=== PATIENT | male | born 1985 | race Hispanic/Latino ===

== ENCOUNTER 2020-02-18 21:51 | Inpatient (IN) | payer OTHER, SELFPAY ==
[2020-02-18] MEDS ORDERED: ONDANSETRON 4 MG/2 ML INJ IV ONE ×2 (22:18→23:08)
[2020-02-18] MEDS ORDERED: MORPHINE 4 MG/1 ML INJ IV ONE (22:18)
[2020-02-18] MEDS ORDERED: LORazepam 2 MG/ML VIAL IV PRN ×3 (22:18)
[2020-02-18] MEDS ORDERED: PANTOPRAZOLE 40 MG INJ IV ONE (22:20)
[2020-02-18] MEDS ORDERED: LACTATED RINGERS 1,000 ML IV ONE (22:20)
--- NOTE | 2020-02-18 22:22 | Emergency Department Report ---
ED General Adult HPI - General Chief complaint: Abdominal Pain Stated complaint: WEAKNESS/BLOOD IN EMESIS PUI?: Yes Time Seen by Provider: 02/18/20 22:06 Source: patient, EMS ( EMS documentation not available at time of chart dictation ), RN notes reviewed Mode of arrival: Stretcher Limitations: Physical Limitation - History of Present Illness Initial comments: The patient was evaluated in the emergency department for symptoms described in the history of present illness. He/she was evaluated in the context of the global COVID-19 pandemic, which necessitated consideration that the patient might be at risk for infection with the virus that causes COVID-19. Institutional protocols and algorithms that pertain to the evaluation of patients at risk for COVID-19 are in a state of rapid change based on information released by regulatory bodies including the CDC and federal and state organizations. These policies and algorithms were followed during the patient's care in the emergency department. Please note that these policies, procedures and recommendations changed on a rapid basis. During the entire history and physical examination, I had on complete personal protective equipment. During the entire history and physical examination, I am chaperoned/escorted by Mr. Tylor Carroll The patient is a 34-year-old gentleman. He is not known to myself previously. He does not have a primary care doctor. He denies chronic medical conditions. He presents to the ER today with a complaint of black stool, intermittently over the past few days, fever yesterday to 101.9 degrees, chills, shaking, and hematemesis. No headache, neck pain, chest pain. Positive mild diffuse abdominal pain. No urinary symptoms. No testicular pain. No homicidality or suicidality. Does not consume alcohol frequently. No loss of taste or smell that he is aware of. He has never had this happen to him before. -: Gradual, days(s) Location: abdomen Quality: aching Consistency: intermittent Improves with: rest Worsens with: eating - Related Data Allergies Allergy/AdvReac Type Severity Reaction Status Date / Time No Known Allergies Allergy Unverified 02/18/20 21:56 ED Review of Systems ROS: Stated complaint: WEAKNESS/BLOOD IN EMESIS Other details as noted in HPI Constitutional: fever, malaise, weakness Eyes: denies: eye discharge ENT: denies: epistaxis Respiratory: denies: cough Cardiovascular: denies: chest pain Gastrointestinal: abdominal pain, nausea, vomiting, hematemesis, melena. denies: hematochezia Genitourinary: denies: dysuria Musculoskeletal: arthralgia, myalgia Skin: denies: lesions Neurological: weakness Psychiatric: anxiety Hematological/Lymphatic: denies: easy bleeding ED Past Medical Hx - Past Medical History Additional medical history: shingles - Surgical History Past Surgical History?: No - Social History Smoking Status: Never Smoker Substance Use Type: None ED Physical Exam - General Limitations: No Limitations General appearance: alert, anxious, in distress - Head Head exam: Present: atraumatic, normocephalic - Eye Eye exam: Present: normal appearance (Bilateral conjunctiva are pale), EOMI - ENT ENT exam: Present: normal exam, normal orophraynx, mucous membranes dry, normal external ear exam - Neck Neck exam: Present: normal inspection, full ROM. Absent: tenderness, meningismus - Respiratory Respiratory exam: Present: normal lung sounds bilaterally. Absent: respiratory distress, wheezes, rales, rhonchi, stridor - Cardiovascular Cardiovascular Exam: Present: regular rate, normal rhythm, normal heart sounds. Absent: bradycardia, tachycardia, irregular rhythm, systolic murmur, diastolic murmur, rubs, gallop - GI/Abdominal GI/Abdominal exam: Present: soft. Absent: distended, tenderness, guarding, rebound, rigid, pulsatile mass - Rectal Rectal exam: Present: normal inspection, normal rectal tone, heme (+) stool, black stool - Extremities Exam Extremities exam: Present: normal inspection, full ROM, other (2+ pulses noted i n the bilateral upper and lower extremities. There is no palpable cord. negative Homans sign. Muscular compartments are soft. The pelvis is stable.). Absent: pedal edema, calf tenderness - Back Exam Back exam: Present: normal inspection, full ROM. Absent: tenderness, CVA tenderness (R), CVA tenderness (L), paraspinal tenderness, vertebral tenderness - Neurological Exam Neurological exam: Present: alert, other (No facial droop. Tongue midline. Extraocular movements intact bilaterally. Facial sensation intact to light touch in V1, V2, V3 distribution bilaterally. 5 and a 5 strength in 4 extremities. Sensation intact to light touch in 4 extremities.) - Psychiatric Psychiatric exam: Present: anxious - Skin Skin exam: Present: warm, dry, intact, normal color. Absent: rash ED Course Vital Signs 12/01/20 12/01/20 12/01/20 22:24 22:27 22:30 Temperature 98.0 F Pulse Rate 85 95 H 89 Respiratory 18 16 17 Rate Blood Pressure 118/71 Blood Pressure 103/54 [Right] O2 Sat by Pulse 99 98 100 Oximetry 02/18/20 02/18/20 02/18/20 22:45 22:57 23:00 Temperature Pulse Rate 78 76 92 H Respiratory 20 11 L 12 Rate Blood Pressure 105/67 105/67 111/60 Blood Pressure [Right] O2 Sat by Pulse 99 100 99 Oximetry 02/18/20 02/18/20 02/18/20 23:15 23:30 23:45 Temperature Pulse Rate 76 79 78 Respiratory 14 22 20 Rate Blood Pressure 109/63 110/60 110/60 Blood Pressure [Right] O2 Sat by Pulse 99 99 100 Oximetry 02/19/20 02/19/20 02/19/20 00:00 00:27 00:30 Temperature Pulse Rate 81 95 H 84 Respiratory 17 14 13 Rate Blood Pressure 100/55 102/59 102/59 Blood Pressure [Right] O2 Sat by Pulse 99 97 100 Oximetry 02/19/20 02/19/20 02/19/20 00:46 01:00 01:15 Temperature Pulse Rate 90 68 69 Respiratory 17 16 17 Rate Blood Pressure 102/59 101/52 92/53 Blood Pressure [Right] O2 Sat by Pulse 99 99 98 Oximetry 02/19/20 02/19/20 02/19/20 01:30 01:45 02:00 Temperature Pulse Rate 80 69 75 Respiratory 18 14 20 Rate Blood Pressure 91/55 107/65 107/63 Blood Pressure [Right] O2 Sat by Pulse 98 99 100 Oximetry 02/19/20 02/19/20 02/19/20 02:15 02:30 02:45 Temperature Pulse Rate 73 73 72 Respiratory 20 16 16 Rate Blood Pressure 110/66 105/63 107/65 Blood Pressure [Right] O2 Sat by Pulse 100 98 99 Oximetry - Reevaluation(s) Reevaluation #1: 02/18/20 23:11 Differential diagnosis, including the not limited to: Upper GI bleed, pancreatitis, pneumonia, bacteremia, viremia, intra-abdominal infection, COVID- 19 Assessment and plan: 34-year-old gentleman who is pale, clammy, with dry mucous membranes, pale conjunctiva, black stool on rectal exam, and report of vomiting blood x6 today. Place patient on environmental monitoring technician. 2 large-bore IVs will be established, start IV fluids, Protonix, pain medication, nausea medication. Obtain appropriate laboratory studies, EKG, x-ray the chest. Obtain CT scan of the abdomen pelvis, discussed with gastroenterology. Patient amenable to packed red blood cell transfusion. Anticipate admission to the medical service. Patient is amenable to packed red blood cell transfusion, and he is also amenable to hospitalization/admission. Reevaluation #2: 02/19/20 00:[address] scan abdomen pelvis negative for acute disease. Hemoglobin of 9, hematocrit 29, blood urea nitrogen 30, suggestive of upper GI bleed. Given lack of cardiovascular comorbidities, hemoglobin greater than 7, we will hold transfusion at this time. Patient is not hypoxic, has clear x-ray of the chest, no obvious infectious pathology identified today and on objective imaging studies. At this point in time, do not see indication for antibiotics, or for steroids. Hospital physician, Dr. Beatriz Carrero to admit - Consultations Consultation #1: 02/18/20 23:51 Discussed history, physical, pertinent laboratory studies imaging studies with gastroenterology on-call, Dr. George Wagoner. He agrees with plan of care, and will follow in consultation. ED Medical Decision Making - Lab Data Result diagrams: 02/18/20 22:47 02/18/20 22:47 Vital Signs 02/18/20 02/18/20 02/18/20 22:24 22:27 22:30 Temperature 98.0 F Pulse Rate 85 95 H 89 Respiratory 18 16 17 Rate Blood Pressure 118/71 Blood Pressure 103/54 [Right] O2 Sat by Pulse 99 98 100 Oximetry 02/18/20 22:45 Temperature Pulse Rate 78 Respiratory 20 Rate Blood Pressure 105/67 Blood Pressure [Right] O2 Sat by Pulse 99 Oximetry Vital Signs 02/18/20 02/18/20 02/18/20 22:24 22:27 22:30 Temperature 98.0 F Pulse Rate 85 95 H 89 Respiratory 18 16 17 Rate Blood Pressure 118/71 Blood Pressure 103/54 [Right] O2 Sat by Pulse 99 98 100 Oximetry 02/18/20 22:45 Temperature Pulse Rate 78 Respiratory 20 Rate Blood Pressure 105/67 Blood Pressure [Right] O2 Sat by Pulse 99 Oximetry Lab Results 02/18/20 02/18/20 02/18/20 Range/Units 22:47 22:47 22:47 WBC 10.9 (4.5-11.0) K/mm3 RBC 2.99 L (3.65-5.03) M/mm3 Hgb 9.3 L (11.8-15.2) gm/dl Hct 26.5 L (35.5-45.6) % MCV 89 (84-94) fl MCH 31 (28-32) pg MCHC 35 H (32-34) % RDW 12.4 L (13.2-15.2) % Plt Count 180 (140-440) K/mm3 Lymph % (Auto) 7.4 L (13.4-35.0) % Caroline % (Auto) 4.9 (0.0-7.3) % Eos % (Auto) 0.5 (0.0-4.3) % Baso % (Auto) 0.0 (0.0-1.8) % Lymph # (Auto) 0.8 L (1.2-5.4) K/mm3 Caroline # (Auto) 0.5 (0.0-0.8) K/mm3 Eos # (Auto) 0.1 (0.0-0.4) K/mm3 Baso # (Auto) 0.0 (0.0-0.1) K/mm3 Seg Neutrophils % 87.2 H (40.0-70.0) % Seg Neutrophils # 9.5 H (1.8-7.7) K/mm3 PT 14.3 (12.2-14.9) Sec. INR 1.13 (0.87-1.13) Sodium 141 (137-145) mmol/L Potassium 4.4 (3.6-5.0) mmol/L Chloride 109.5 H (98-107) mmol/L Carbon Dioxide 24 (22-30) mmol/L Anion Gap 12 mmol/L BUN 30 H (9-20) mg/dL Creatinine 0.8 (0.8-1.3) mg/dL Estimated GFR > 60 ml/min BUN/Creatinine Ratio 38 % Glucose 106 H (75-100) mg/dL Lactic Acid (0.7-2.0) mmol/L Calcium 8.0 L (8.4-10.2) mg/dL Magnesium (1.7-2.3) mg/dL Total Bilirubin 0.20 (0.1-1.2) mg/dL Direct Bilirubin < 0.2 (0-0.2) mg/dL Indirect Bilirubin 0.0 mg/dL AST 11 (5-40) units/L ALT 11 (7-56) units/L Alkaline Phosphatase 43 (35-129) units/L Total Creatine Kinase (55-170) units/L Total Protein 5.2 L (6.3-8.2) g/dL Albumin 3.4 L (3.9-5) g/dL Albumin/Globulin Ratio 1.9 % Lipase 37 (13-60) units/L Blood Type 02/18/20 02/18/20 02/18/20 Range/Units 22:47 22:47 22:47 WBC (4.5-11.0) K/mm3 RBC (3.65-5.03) M/mm3 Hgb (11.8-15.2) gm/dl Hct (35.5-45.6) % MCV (84-94) fl MCH (28-32) pg MCHC (32-34) % RDW (13.2-15.2) % Plt Count (140-440) K/mm3 Lymph % (Auto) (13.4-35.0) % Caroline % (Auto) (0.0-7.3) % Eos % (Auto) (0.0-4.3) % Baso % (Auto) (0.0-1.8) % Lymph # (Auto) (1.2-5.4) K/mm3 Caroline # (Auto) (0.0-0.8) K/mm3 Eos # (Auto) (0.0-0.4) K/mm3 Baso # (Auto) (0.0-0.1) K/mm3 Seg Neutrophils % (40.0-70.0) % Seg Neutrophils # (1.8-7.7) K/mm3 PT (12.2-14.9) Sec. INR (0.87-1.13) Sodium (137-145) mmol/L Potassium (3.6-5.0) mmol/L Chloride (98-107) mmol/L Carbon Dioxide (22-30) mmol/L Anion Gap mmol/L BUN (9-20) mg/dL Creatinine (0.8-1.3) mg/dL Estimated GFR ml/min BUN/Creatinine Ratio % Glucose (75-100) mg/dL Lactic Acid 1.60 (0.7-2.0) mmol/L Calcium (8.4-10.2) mg/dL Magnesium 1.70 (1.7-2.3) mg/dL Total Bilirubin (0.1-1.2) mg/dL Direct Bilirubin (0-0.2) mg/dL Indirect Bilirubin mg/dL AST (5-40) units/L ALT (7-56) units/L Alkaline Phosphatase (35-129) units/L Total Creatine Kinase 79 (55-170) units/L Total Protein (6.3-8.2) g/dL Albumin (3.9-5) g/dL Albumin/Globulin Ratio % Lipase (13-60) units/L Blood Type O NEGATIVE - EKG Data -: EKG Interpreted by Me EKG shows normal: sinus rhythm Rate: normal - EKG Data When compared to previous EKG there are: previous EKG unavailable 02/18/20 23:43 Sinus rhythm, 84 bpm, normal axis, high left ventricular voltage, QTC 449 ms. Abnormal EKG. No prior for comparison. Not a STEMI. - Radiology Data Radiology results: pending, report reviewed, image reviewed interpreted by me: 1 view x-ray of the chest, interpreted by myself, negative for acute findings Critical care attestation.: If time is entered above; I have spent that time in minutes in the direct care of this critically ill patient, excluding procedure time. ED Disposition Clinical Impression: GI bleed, Anemia, Suspected 2019 novel coronavirus infection Disposition: OP ADMIT IP TO THIS HOSP Is pt being admited?: Yes Does the pt Need Aspirin: No Condition: Serious
[2020-02-18] MEDS ORDERED: WATER FOR INJ Sterile (PF) 10 ML ONE (22:41)
[2020-02-18] MEDS ORDERED: PANTOPRAZOLE 80 MG in SODIUM CHLORIDE 0.9% 100 ML IV SCH (23:00)
--- NOTE | 2020-02-18 23:12 | XRay Report ---
CHEST 1 VIEW INDICATION: n/v hematemesis. COMPARISON: None FINDINGS: SUPPORT DEVICES: None. HEART: Within normal limits. LUNGS/PLEURA: No acute air space or interstitial disease. ADDITIONAL FINDINGS: None. IMPRESSION: 1. No acute findings. Signer Name: Abram Baig MD Signed: 02/18/2020 11:08 PM Workstation Name: [id number]
[2020-02-18 23:13] LABS: Eosinophils # (Auto) 0.1 K/mm3 (0.0-0.4); Eosinophils % (Auto) 0.5 % (0.0-4.3); Hematocrit 26.5 % (35.5-45.6); Hemoglobin 9.3 gm/dl (11.8-15.2); Lymphocytes # (Auto) 0.8 K/mm3 (1.2-5.4); Lymphocytes % (Auto) 7.4 % (13.4-35.0); Mean Corpuscular HGB Conc 35 % (32-34); Mean Corpuscular Volume 89 fl (84-94); Monocytes # (Auto) 0.5 K/mm3 (0.0-0.8); Monocytes % (Auto) 4.9 % (0.0-7.3); Platelet Count 180 K/mm3 (140-440); Red Blood Count 2.99 M/mm3 (3.65-5.03); Red Cell Distribution Width 12.4 % (13.2-15.2)
[2020-02-18 23:43] LABS: INR 1.13 (0.87-1.13)
[2020-02-18 23:52] LABS: Alanine Aminotransferase 11 units/L (7-56); Albumin 3.4 g/dL (3.9-5); BUN/Creatinine Ratio 38; Blood Urea Nitrogen 30 mg/dL (9-20); Hemolysis Index 5
[2020-02-18 23:54] LABS: Bilirubin,Direct < 0.2 mg/dL (0-0.2)
--- NOTE | 2020-02-19 00:48 | Cat Scan Report ---
CT ABDOMEN AND PELVIS WITH CONTRAST HISTORY: Pt complains of abd pain with N/V, hematemesis and fever. COMPARISON: None. TECHNIQUE: CT images of the abdomen and pelvis were obtained following administration of intravenous contrast. All CT scans at this location are performed using CT dose reduction for ALARA by means of automated exposure control. CONTRAST: 100 ml of intravenous contrast administered. FINDINGS: Lungs/bones: Lung bases are clear. No acute osseous abnormality identified. Small bone island in the right sacral ala. Abdomen/pelvis: The liver, gallbladder, spleen, pancreas, adrenals, kidneys, and proximal GI tract a ppear unremarkable. Urinary bladder and prostate appear unremarkable with no pelvic free fluid. No acute colonic abnormal ity. The appendix and terminal ileum appear normal. IMPRESSION: 1. No acute abnormality identified. Signer Name: Abram Baig MD Signed: 02/19/2020 12:44 AM Workstation Name: [id number]
[2020-02-19] MEDS ORDERED: ACETAMINOPHEN 325 MG TAB PO PRN (01:33)
[2020-02-19] MEDS ORDERED: MORPHINE 2 MG/1 ML INJ IV PRN (01:33)
[2020-02-19] MEDS ORDERED: ONDANSETRON 4 MG/2 ML INJ IV PRN (01:33)
[2020-02-19] MEDS ORDERED: LACTATED RINGERS 1,000 ML IV ONE (01:42)
--- NOTE | 2020-02-19 01:42 | History and Physical Report ---
History of Present Illness Date of examination: 02/19/20 Date of admission: 02/19/20 00:51 Chief complaint: Hematemesis History of present illness: 34-year-old white male with no significant past medical history except for shingles in the past presenting to the emergency room today complaining of hematemesis. Has had some associated abdominal discomfort. Patient also indicates that he has had occasional black stool over the past few days. He has had some fever with temperature 101.9 F and chills . Patient indicates that he has taken some nonsteroidal anti-inflammatory medication -Aleve in the past few days. He denies having any bleeding in the past. Denies any headache or dizziness, no chest pain or shortness of breath. Work-up in the emergency room including urinalysis, chest x-ray and CT scan of the abdomen and pelvis were unremarkable. Patient started on Protonix drip. Desk Attendant Dr. Wagoner has been consulted by the ER physician. He is also to be ruled out for COVID-19. Past History Past Medical History: other (Shingles) Past Surgical History: No surgical history Social history: denies: no significant social history Medications and Allergies Allergies Allergy/AdvReac Type Severity Reaction Status Date / Time No Known Allergies Allergy Unverified 02/18/20 21:56 Active Meds: Active Medications Acetaminophen (Tylenol) 650 mg PO Q4H PRN PRN Reason: Pain MILD(1-3)/Fever >100.5/SNIDER Pantoprazole Sodium 80 mg/ (Sodium Chloride) 100 mls @ 10 mls/hr IV DIRECT TINO Last Admin: 02/18/20 23:22 Dose: 8 mg/hr, 10 mls/hr Documented by: Sodium Chloride (Nacl 0.9% 1000 Ml) 1,000 mls @ 125 mls/hr IV DIRECT TINO Lorazepam (Ativan) 2 mg IV Q1HR PRN PRN Reason: CIWA-Ar 8-15 Lorazepam (Ativan) 4 mg IV Q1HR PRN PRN Reason: CIWA-Ar 16-25 Lorazepam (Ativan) 4 mg IV Q15MIN PRN PRN Reason: CIWA-Ar >25 Morphine Sulfate (Morphine) 2 mg IV Q4H PRN PRN Reason: Pain, Moderate (4-6) Ondansetron HCl (Zofran) 4 mg IV Q8H PRN PRN Reason: Nausea And Vomiting Sodium Chloride (Sodium Chloride Flush Syringe 10 Ml) 10 ml IV BID TINO Sodium Chloride (Sodium Chloride Flush Syringe 10 Ml) 10 ml IV PRN PRN PRN Reason: LINE FLUSH Review of Systems Constitutional: no fever, no chills Ears, nose, mouth and throat: no nasal congestion, no sore throat Cardiovascular: no chest pain, no palpitations Respiratory: no cough, no shortness of breath Gastrointestinal: hematemesis, melena, no abdominal pain, no nausea, no vomiting Genitourinary Male: no dysuria, no hematuria, no nocturia Musculoskeletal: no neck pain, no low back pain Integumentary: no rash, no pruritis Neurological: no headaches, no confusion Psychiatric: no anxiety, no depression Exam - Constitutional Vitals: Temp Pulse Resp BP Pulse Ox 98.0 F 68 16 101/52 99 02/18/20 22:24 02/19/20 01:00 02/19/20 01:00 02/19/20 01:00 02/19/20 01:00 General appearance: Present: no acute distress, well-nourished - EENT Eyes: Present: PERRL, EOM intact. Absent: scleral icterus ENT: hearing intact, clear oral mucosa, dentition normal - Neck Neck: Present: supple, normal ROM - Respiratory Respiratory effort: normal Respiratory: bilateral: CTA - Cardiovascular Rhythm: regular Heart Sounds: Present: S1 & S2. Absent: gallop, systolic murmur, diastolic murmur, rub - Extremities Extremities: no ischemia, pulses intact, pulses symmetrical, No edema, Full ROM Peripheral Pulses: within normal limits - Abdominal General gastrointestinal: Present: soft, non-tender, non-distended, normal bowel sounds. Absent: mass - Integumentary Integumentary: Present: clear, warm, dry. Absent: rash - Musculoskeletal Musculoskeletal: strength equal bilaterally - Psychiatric Psychiatric: appropriate mood/affect, intact judgment & insight, memory intact, cooperative - Neurologic Neurologic: CNII-XII intact, moves all extremities Results - Labs CBC & Chem 7: 02/18/20 22:47 02/18/20 22:47 Labs: Abnormal lab results 02/18/20 02/18/20 Range/Units 22:47 22:47 RBC 2.99 L (3.65-5.03) M/mm3 Hgb 9.3 L (11.8-15.2) gm/dl Hct 26.5 L (35.5-45.6) % MCHC 35 H (32-34) % RDW 12.4 L (13.2-15.2) % Lymph % (Auto) 7.4 L (13.4-35.0) % Lymph # (Auto) 0.8 L (1.2-5.4) K/mm3 Seg Neutrophils % 87.2 H (40.0-70.0) % Seg Neutrophils # 9.5 H (1.8-7.7) K/mm3 Chloride 109.5 H (98-107) mmol/L BUN 30 H (9-20) mg/dL Glucose 106 H (75-100) mg/dL Calcium 8.0 L (8.4-10.2) mg/dL Total Protein 5.2 L (6.3-8.2) g/dL Albumin 3.4 L (3.9-5) g/dL Assessment and Plan - Patient Problems (1) GI bleed Current Visit: Yes Status: Acute Plan to address problem: Possibly secondary to intake of nonsteroidal anti-inflammatory medication. Patient made n.p.o. He has also been started on proton pump inhibitor. We await further evaluation by gastroenterology. (2) Anemia Current Visit: Yes Status: Acute Plan to address problem: Possibly secondary to GI bleed. Will monitor CBC. (3) Suspected 2019 novel coronavirus infection Current Visit: Yes Status: Acute Plan to address problem: Patient placed on isolation precautions in view of the history of recent fever. We await COVID-19 testing. (4) DVT prophylaxis Current Visit: Yes Status: Acute Plan to address problem: Patient placed on sequential compression device. (5) Full code status Current Visit: Yes Status: Acute
[2020-02-19] MEDS ORDERED: SODIUM CHLORIDE 0.9% 1000 ML 1,000 ML ONE ×2 (02:29→09:56)
[2020-02-19] MEDS: SODIUM CHLORIDE 0.9% 1000 ML 1,000 ML IV SCH ×3 (02:36→20:40)
[2020-02-19 02:49] LABS: Bilirubin,Urine NEG (Negative); Blood,Urine NEG (Negative); Color,Urine Yellow (Yellow); Mucus,Urine FEW /HPF; Protein,Urine <15 mg/dL mg/dL (Negative); Urobilinogen,Urine < 2.0 mg/dL (<2.0)
[2020-02-19] MEDS ORDERED: SODIUM CHLORIDE 0.9% 250ML 250 ML ONE (06:50)
[2020-02-19] MEDS ORDERED: SODIUM CHLORIDE 0.9% 250ML 250 ML IV ONE (06:59)
[2020-02-19 11:22] LABS: Hemoglobin 8.6 gm/dl (11.8-15.2)
[2020-02-19 13:39] LABS: Hematocrit 24.8 % (35.5-45.6)
--- NOTE | 2020-02-19 13:54 | Gastroenterology Consultation ---
History of Present Illness - Reason for Consult Consult date: 02/19/20 GI bleed Requesting physician: JOLLY THURSTON - History of Present Illness The patient is a 34 yo male who presents with n/v/abd pain; pt reports sx's for the past 1 week, episodes of dark blood appearing emesis prior to admission. Reports having black stools for 3-4 days. + left sided abd pain, fever at home prior to admission with associated chills. Noted to have anemia on admission, stable today on f/u labs. no n/v/signs of gi bleeding since arrival. pt being rule out for COVID. + nsaid use (coupled days) recently. Past History Past Medical History: other (Shingles) Past Surgical History: No surgical history Social history: denies: no significant social history Medications and Allergies Allergies Allergy/AdvReac Type Severity Reaction Status Date / Time No Known Allergies Allergy Unverified 02/18/20 21:56 Active Meds: Active Medications Acetaminophen (Tylenol) 650 mg PO Q4H PRN PRN Reason: Pain MILD(1-3)/Fever >100.5/SNIDER Pantoprazole Sodium 80 mg/ (Sodium Chloride) 100 mls @ 10 mls/hr IV DIRECT TINO Last Admin: 02/18/20 23:22 Dose: 8 mg/hr, 10 mls/hr Documented by: Sodium Chloride (Nacl 0.9% 1000 Ml) 1,000 mls @ 125 mls/hr IV DIRECT TINO Last Admin: 02/19/20 10:01 Dose: 125 mls/hr Documented by: Lorazepam (Ativan) 2 mg IV Q1HR PRN PRN Reason: CIWA-Ar 8-15 Lorazepam (Ativan) 4 mg IV Q1HR PRN PRN Reason: CIWA-Ar 16-25 Lorazepam (Ativan) 4 mg IV Q15MIN PRN PRN Reason: CIWA-Ar >25 Morphine Sulfate (Morphine) 2 mg IV Q4H PRN PRN Reason: Pain, Moderate (4-6) Ondansetron HCl (Zofran) 4 mg IV Q8H PRN PRN Reason: Nausea And Vomiting Sodium Chloride (Sodium Chloride Flush Syringe 10 Ml) 10 ml IV BID TINO Sodium Chloride (Sodium Chloride Flush Syringe 10 Ml) 10 ml IV PRN PRN PRN Reason: LINE FLUSH Reviewed/updated patient's home and current medications Review of Systems - Review of Systems All systems: negative (per HPI) Exam - Constitutional Vital Signs: Temp Pulse Resp BP Pulse Ox 98.0 F 63 18 99/56 100 02/18/20 22:24 02/19/20 11:30 02/19/20 11:30 02/19/20 13:00 02/19/20 11:30 General appearance: no acute distress - EENT Eyes: PERRL, EOM intact - Respiratory Respiratory effort: normal Respiratory: bilateral: CTA - Cardiovascular Rhythm: regular Heart Sounds: Present: S1 & S2 - Gastrointestinal General gastrointestinal: Present: soft, tender (mild luq ttp), non-distended - Neurologic Neurological: alert and oriented x3 - Labs CBC & Chem 7: 02/19/20 13:23 02/18/20 22:47 Lab Results: Laboratory Results - last 24 hr 02/18/20 02/18/20 02/18/20 22:47 22:47 22:47 WBC 10.9 RBC 2.99 L Hgb 9.3 L Hct 26.5 L MCV 89 MCH 31 MCHC 35 H RDW 12.4 L Plt Count 180 Lymph % (Auto) 7.4 L [place] % (Auto) 4.9 Eos % (Auto) 0.5 Baso % (Auto) 0.0 Lymph # (Auto) 0.8 L [place] # (Auto) 0.5 Eos # (Auto) 0.1 Baso # (Auto) 0.0 Seg Neutrophils % 87.2 H Seg Neutrophils # 9.5 H PT 14.3 INR 1.13 Sodium 141 Potassium 4.4 Chloride 109.5 H Carbon Dioxide 24 Anion Gap 12 BUN 30 H Creatinine 0.8 Estimated GFR > 60 BUN/Creatinine Ratio 38 Glucose 106 H Lactic Acid Calcium 8.0 L Magnesium Total Bilirubin 0.20 Direct Bilirubin < 0.2 Indirect Bilirubin 0.0 AST 11 ALT 11 Alkaline Phosphatase 43 Lactate Dehydrogenase 124 Total Creatine Kinase C-Reactive Protein 0.20 Total Protein 5.2 L Albumin 3.4 L Albumin/Globulin Ratio 1.9 Lipase 37 Procalcitonin Urine Color Urine Turbidity Urine pH Ur Specific [place] Urine Protein Urine Glucose (UA) Urine Ketones Urine Blood Urine Nitrite Urine Bilirubin Urine Urobilinogen Ur Leukocyte Esterase Urine WBC (Auto) Urine RBC (Auto) Urine Mucus Blood Type Antibody Screen 1202/18/20 02/18/20 22:47 22:47 22:47 WBC RBC Hgb Hct MCV MCH MCHC RDW Plt Count Lymph % (Auto) [place] % (Auto) Eos % (Auto) Baso % (Auto) Lymph # (Auto) [place] # (Auto) Eos # (Auto) Baso # (Auto) Seg Neutrophils % Seg Neutrophils # PT INR Sodium Potassium Chloride Carbon Dioxide Anion Gap BUN Creatinine Estimated GFR BUN/Creatinine Ratio Glucose Lactic Acid 1.60 Calcium Magnesium Total Bilirubin Direct Bilirubin Indirect Bilirubin AST ALT Alkaline Phosphatase Lactate Dehydrogenase Total Creatine Kinase C-Reactive Protein Total Protein Albumin Albumin/Globulin Ratio Lipase Procalcitonin < 0.05 Urine Color Urine Turbidity Urine pH Ur Specific [place] Urine Protein Urine Glucose (UA) Urine Ketones Urine Blood Urine Nitrite Urine Bilirubin Urine Urobilinogen Ur Leukocyte Esterase Urine WBC (Auto) Urine RBC (Auto) Urine Mucus Blood Type O NEGATIVE Antibody Screen Negative 02/18/20 02/19/20 02/19/20 22:47 02:13 11:08 WBC RBC Hgb 8.6 L Hct 24.0 L MCV MCH MCHC RDW Plt Count Lymph % (Auto) [place] % (Auto) Eos % (Auto) Baso % (Auto) Lymph # (Auto) [place] # (Auto) Eos # (Auto) Baso # (Auto) Seg Neutrophils % Seg Neutrophils # PT INR Sodium Potassium Chloride Carbon Dioxide Anion Gap BUN Creatinine Estimated GFR BUN/Creatinine Ratio Glucose Lactic Acid Calcium Magnesium 1.70 Total Bilirubin Direct Bilirubin Indirect Bilirubin AST ALT Alkaline Phosphatase Lactate Dehydrogenase Total Creatine Kinase 79 C-Reactive Protein Total Protein Albumin Albumin/Globulin Ratio Lipase Procalcitonin Urine Color Yellow Urine Turbidity Clear Urine pH 5.0 Ur Specific [place] 1.049 H Urine Protein <15 mg/dl Urine Glucose (UA) Neg Urine Ketones Tr Urine Blood Neg Urine Nitrite Neg Urine Bilirubin Neg Urine Urobilinogen < 2.0 Ur Leukocyte Esterase Neg Urine WBC (Auto) 1.0 Urine RBC (Auto) 1.0 Urine Mucus Few Blood Type Antibody Screen 02/19/20 13:23 WBC RBC Hgb 9.0 L Hct 24.8 L MCV MCH MCHC RDW Plt Count Lymph % (Auto) [place] % (Auto) Eos % (Auto) Baso % (Auto) Lymph # (Auto) [place] # (Auto) Eos # (Auto) Baso # (Auto) Seg Neutrophils % Seg Neutrophils # PT INR Sodium Potassium Chloride Carbon Dioxide Anion Gap BUN Creatinine Estimated GFR BUN/Creatinine Ratio Glucose Lactic Acid Calcium Magnesium Total Bilirubin Direct Bilirubin Indirect Bilirubin AST ALT Alkaline Phosphatase Lactate Dehydrogenase Total Creatine Kinase C-Reactive Protein Total Protein Albumin Albumin/Globulin Ratio Lipase Procalcitonin Urine Color Urine Turbidity Urine pH Ur Specific [place] Urine Protein Urine Glucose (UA) Urine Ketones Urine Blood Urine Nitrite Urine Bilirubin Urine Urobilinogen Ur Leukocyte Esterase Urine WBC (Auto) Urine RBC (Auto) Urine Mucus Blood Type Antibody Screen Assessment and Plan 1. UGI bleed - anemic on admission, stable today. no further bleeding since admission. ? PUD, MWT, etc. Cont PPI drip, monitor labs, and will plan for EGD tomorrow (pending COVID results). 2. Abd pain - unclear etiology, ct without acute findings. liver enzymes and lipase normal. ? PUD, biliary source. EGD as above and further management based on progress okay for clears today from gi stand point and NPO at midnight
--- NOTE | 2020-02-19 15:48 | Consultation ---
History of Present Illness - Reason for Consult Consult date: 02/19/20 - History of Present Illness 34-year-old man no past medical history aside from obesity admitted to the hospital complaining of hematemesis. He notes some abdominal pain associated with this as well as occasional black stool. He reports some fevers at home. He otherwise denies symptoms. Afebrile with normal white count. Not on antibiotics. Cultures pending. Imaging personally reviewed: Chest x-ray: No acute abnormality CT abdomen pelvis no acute normality. Review of Systems: Bold if positive, otherwise negative General: fevers, chills, rigors HEENT: visual disturbance, diplopia, eye pain Respiratory: cough, sputum, hemoptysis, shortness of breath Cardiovascular: chest pain, syncope Gastrointestinal: nausea, vomiting, diarrhea, abdominal pain Genitourinary: dysuria, hematuria, flank pain Musculoskeletal: neck pain, back pain, joint pain, edema Neurologic: headaches, seizures Hematologic: easy bruising or bleeding Endocrine: night sweats, acute weight loss Skin: rash, jaundice, redness Psychiatric: suicidal, homicidal ideation Past History Past Medical History: other (Shingles) Past Surgical History: No surgical history Social history: denies: no significant social history Medications and Allergies Allergies Allergy/AdvReac Type Severity Reaction Status Date / Time No Known Allergies Allergy Unverified 02/18/20 21:56 Active Meds: Active Medications Acetaminophen (Tylenol) 650 mg PO Q4H PRN PRN Reason: Pain MILD(1-3)/Fever >100.5/SNIDER Pantoprazole Sodium 80 mg/ (Sodium Chloride) 100 mls @ 10 mls/hr IV DIRECT TINO Last Admin: 02/18/20 23:22 Dose: 8 mg/hr, 10 mls/hr Documented by: Sodium Chloride (Nacl 0.9% 1000 Ml) 1,000 mls @ 125 mls/hr IV DIRECT TINO Last Admin: 02/19/20 10:01 Dose: 125 mls/hr Documented by: Lorazepam (Ativan) 2 mg IV Q1HR PRN PRN Reason: CIWA-Ar 8-15 Lorazepam (Ativan) 4 mg IV Q1HR PRN PRN Reason: CIWA-Ar 16-25 Lorazepam (Ativan) 4 mg IV Q15MIN PRN PRN Reason: CIWA-Ar >25 Morphine Sulfate (Morphine) 2 mg IV Q4H PRN PRN Reason: Pain, Moderate (4-6) Ondansetron HCl (Zofran) 4 mg IV Q8H PRN PRN Reason: Nausea And Vomiting Sodium Chloride (Sodium Chloride Flush Syringe 10 Ml) 10 ml IV BID TINO Sodium Chloride (Sodium Chloride Flush Syringe 10 Ml) 10 ml IV PRN PRN PRN Reason: LINE FLUSH Physical Examination - Physical Exam Narrative exam: Physical exam deferred due to PPE conservation strategy. Please refer to primary team's note. - Constitutional Vitals: Vital Signs Temp Pulse Resp BP Pulse Ox 98.0 F 63 18 99/56 100 02/18/20 22:24 02/19/20 11:30 02/19/20 11:30 02/19/20 13:00 02/19/20 11:30 Temperature -Last 24 Hours Temperature 98.0 F Results - Labs CBC & Chem 7: 02/19/20 13:23 02/18/20 22:47 Labs: Abnormal lab results 02/18/20 02/18/20 02/19/20 Range/Units 22:47 22:47 02:13 RBC 2.99 L (3.65-5.03) M/mm3 Hgb 9.3 L (11.8-15.2) gm/dl Hct 26.5 L (35.5-45.6) % MCHC 35 H (32-34) % RDW 12.4 L (13.2-15.2) % Lymph % (Auto) 7.4 L (13.4-35.0) % Lymph # (Auto) 0.8 L (1.2-5.4) K/mm3 Seg Neutrophils % 87.2 H (40.0-70.0) % Seg Neutrophils # 9.5 H (1.8-7.7) K/mm3 Chloride 109.5 H (98-107) mmol/L BUN 30 H (9-20) mg/dL Glucose 106 H (75-100) mg/dL Calcium 8.0 L (8.4-10.2) mg/dL Total Protein 5.2 L (6.3-8.2) g/dL Albumin 3.4 L (3.9-5) g/dL Ur Specific [place] 1.049 H (1.003-1.030) Coronavirus (PCR) (Negative) 02/19/20 02/19/20 02/19/20 Range/Units 08:25 11:08 13:23 RBC (3.65-5.03) M/mm3 Hgb 8.6 L 9.0 L (11.8-15.2) gm/dl Hct 24.0 L 24.8 L (35.5-45.6) % MCHC (32-34) % RDW (13.2-15.2) % Lymph % (Auto) (13.4-35.0) % Lymph # (Auto) (1.2-5.4) K/mm3 Seg Neutrophils % (40.0-70.0) % Seg Neutrophils # (1.8-7.7) K/mm3 Chloride (98-107) mmol/L BUN (9-20) mg/dL Glucose (75-100) mg/dL Calcium (8.4-10.2) mg/dL Total Protein (6.3-8.2) g/dL Albumin (3.9-5) g/dL Ur Specific [place] (1.003-1.030) Coronavirus (PCR) Positive A (Negative) Assessment and Plan Cultures: None A/P: 34-year-old man past medical history obesity presented with an upper GI bleed #Covid PUI: Follow-up testing. No pneumonia seen on exam #Upper GI bleed: Management per GI, possible EGD pending Covid test results #Obesity: BMI 34 Recs: -Follow-up Covid testing -Discontinue isolation if negative Thank you for the consult, we will continue to follow. MD [facility] ([facility]) O: [phone] F: [phone]
--- NOTE | 2020-02-19 18:38 | Event Note ---
Date: 02/19/20 Patient seen and examined 34-year-old white male presented to the emergency room today complaining of hematemesis, associated abdominal discomfort, fever with temperature 101.9 F and chills. Work-up in the emergency room including urinalysis, chest x-ray and CT scan of the abdomen and pelvis were unremarkable. Patient started on Protonix drip. [employer] Dr. Wagoner has been consulted by the ER physician. Ordered for COVID test - which is now pending clear liquid diet for now, follow h/h plan for endoscopy tomorrow
[2020-02-20 00:22] LABS: Hematocrit 21.8 % (35.5-45.6); Hemoglobin 7.9 gm/dl (11.8-15.2)
[2020-02-20 06:49] LABS: Mean Corpuscular Volume 87 fl (84-94); Platelet Count 164 K/mm3 (140-440); Red Blood Count 2.38 M/mm3 (3.65-5.03); Red Cell Distribution Width 12.8 % (13.2-15.2)
[2020-02-20 06:52] LABS: Hematocrit 20.7 % (35.5-45.6)
[2020-02-20 06:55] LABS: Mean Corpuscular HGB Conc 39 % (32-34)
[2020-02-20 07:14] LABS: Blood Urea Nitrogen 17 mg/dL (9-20); Calcium 7.8 mg/dL (8.4-10.2); Hemolysis Index 4
[2020-02-20 07:15] LABS: INR 1.07 (0.87-1.13)
[2020-02-20 08:02] LABS: BUN/Creatinine Ratio 24
[2020-02-20 08:38] LABS: Basophils % (Manual) 0 % (0.0-1.8); Total Cells Counted 100
[2020-02-20 08:39] LABS: Platelet Estimate Consistent w Auto; RBC Morphology Normal
[2020-02-20 09:07] LABS: Alanine Aminotransferase 8 units/L (7-56); Blood Urea Nitrogen 16 mg/dL (9-20); Calcium 7.9 mg/dL (8.4-10.2); Hemolysis Index 0
[2020-02-20 09:10] LABS: BUN/Creatinine Ratio 23
[2020-02-20] MEDS: SODIUM CHLORIDE 0.9% 1000 ML 1,000 ML IV SCH ×2 (09:19→22:00)
--- NOTE | 2020-02-20 10:43 | Gastroenterology Progress Note ---
Assessment and Plan 1. UGI bleed - no episodes since admission; stable anemia. BUN now normal. given absence of gi bleeding since arrival and + COVID, will hold off on endoscopy unless further signs of bleeding develops -cont PPI BID Dosing and trend labs -okay for clears today from gi stand point. -COVID management per primary will follow Subjective Date of service: 02/20/20 Principal diagnosis: GI bleed Interval history: no signs of gi bleeding since admission. + hemoptysis last night. no bm since admission. denies hematemesis. Objective - Constitutional Vitals: Temp Pulse Resp BP Pulse Ox 98.0 F 81 20 99/59 99 02/20/20 05:10 02/20/20 05:10 02/20/20 08:00 02/20/20 05:10 02/20/20 08:00 General appearance: no acute distress - Respiratory Respiratory effort: normal Respiratory: bilateral: CTA - Cardiovascular Rhythm: regular Heart Sounds: Present: S1 & S2 - Gastrointestinal General gastrointestinal: Present: soft, non-distended - Labs CBC & Chem 7: 02/20/20 05:53 02/20/20 07:44 Labs: Laboratory Results - last 24 hr 02/18/20 02/19/20 02/19/20 22:47 08:25 11:08 WBC RBC Hgb 8.6 L Hct 24.0 L MCV MCH MCHC RDW Plt Count Add Manual Diff Total Counted Seg Neuts % (Manual) Band Neutrophils % Lymphocytes % (Manual) Reactive Lymphs % (Man) Monocytes % (Manual) Eosinophils % (Manual) Basophils % (Manual) Metamyelocytes % Myelocytes % Promyelocytes % Blast Cells % Nucleated RBC % Seg Neutrophils # Man Band Neutrophils # Lymphocytes # (Manual) Abs React Lymphs (Man) Monocytes # (Manual) Eosinophils # (Manual) Basophils # (Manual) Metamyelocytes # Myelocytes # Promyelocytes # Blast Cells # WBC Morphology Hypersegmented Neuts Hyposegmented Neuts Hypogranular Neuts Smudge Cells Toxic Granulation Toxic Vacuolation Dohle Bodies Pelger-Huet Anomaly Wallace Rods Platelet Estimate Clumped Platelets Plt Clumps, EDTA Large Platelets Giant Platelets Platelet Satelliting Plt Morphology Comment RBC Morphology Dimorphic RBCs Polychromasia Hypochromasia Poikilocytosis Anisocytosis Microcytosis Macrocytosis Spherocytes Pappenheimer Bodies Sickle Cells Target Cells Tear Drop Cells Ovalocytes Helmet Cells Roman-Nathrop Bodies Herrin Rings [place] Cells Bite Cells Crenated Cell Elliptocytes Acanthocytes (Spur) Rouleaux Hemoglobin C Crystals Schistocytes Malaria parasites Dandre Bodies Hem Pathologist Commnt PT INR Sodium Potassium Chloride Carbon Dioxide Anion Gap BUN Creatinine Estimated GFR BUN/Creatinine Ratio Glucose POC Glucose Calcium Total Bilirubin AST ALT Alkaline Phosphatase Total Protein Albumin Albumin/Globulin Ratio Procalcitonin < 0.05 Coronavirus (PCR) Positive A 02/19/20 02/19/20 02/19/20 13:23 22:39 22:51 WBC RBC Hgb 9.0 L 7.9 L Hct 24.8 L 21.8 L MCV MCH MCHC RDW Plt Count Add Manual Diff Total Counted Seg Neuts % (Manual) Band Neutrophils % Lymphocytes % (Manual) Reactive Lymphs % (Man) Monocytes % (Manual) Eosinophils % (Manual) Basophils % (Manual) Metamyelocytes % Myelocytes % Promyelocytes % Blast Cells % Nucleated RBC % Seg Neutrophils # Man Band Neutrophils # Lymphocytes # (Manual) Abs React Lymphs (Man) Monocytes # (Manual) Eosinophils # (Manual) Basophils # (Manual) Metamyelocytes # Myelocytes # Promyelocytes # Blast Cells # WBC Morphology Hypersegmented Neuts Hyposegmented Neuts Hypogranular Neuts Smudge Cells Toxic Granulation Toxic Vacuolation Dohle Bodies Pelger-Huet Anomaly Wallace Rods Platelet Estimate Clumped Platelets Plt Clumps, EDTA Large Platelets Giant Platelets Platelet Satelliting Plt Morphology Comment RBC Morphology Dimorphic RBCs Polychromasia Hypochromasia Poikilocytosis Anisocytosis Microcytosis Macrocytosis Spherocytes Pappenheimer Bodies Sickle Cells Target Cells Tear Drop Cells Ovalocytes Helmet Cells Roman-Nathrop Bodies Herrin Rings [place] Cells Bite Cells Crenated Cell Elliptocytes Acanthocytes (Spur) Rouleaux Hemoglobin C Crystals Schistocytes Malaria parasites Dandre Bodies Hem Pathologist Commnt PT INR Sodium Potassium Chloride Carbon Dioxide Anion Gap BUN Creatinine Estimated GFR BUN/Creatinine Ratio Glucose POC Glucose 118 H Calcium Total Bilirubin AST ALT Alkaline Phosphatase Total Protein Albumin Albumin/Globulin Ratio Procalcitonin Coronavirus (PCR) 02/20/20 02/20/20 02/20/20 05:53 05:53 05:53 WBC 3.7 L RBC 2.38 L Hgb 8.0 L Hct 20.7 L MCV 87 MCH 34 H MCHC 39 H* RDW 12.8 L Plt Count 164 Add Manual Diff Complete Total Counted 100 Seg Neuts % (Manual) 66.0 Band Neutrophils % 1.0 Lymphocytes % (Manual) 24.0 Reactive Lymphs % (Man) 0 Monocytes % (Manual) 4.0 Eosinophils % (Manual) 2.0 Basophils % (Manual) 0 Metamyelocytes % 2.0 Myelocytes % 1.0 Promyelocytes % 0 Blast Cells % 0 Nucleated RBC % Not Reportable Seg Neutrophils # Man 2.4 Band Neutrophils # 0.0 Lymphocytes # (Manual) 0.9 L Abs React Lymphs (Man) 0.0 Monocytes # (Manual) 0.1 Eosinophils # (Manual) 0.1 Basophils # (Manual) 0.0 Metamyelocytes # 0.1 Myelocytes # 0.0 Promyelocytes # 0.0 Blast Cells # 0.0 WBC Morphology Not Reportable Hypersegmented Neuts Not Reportable Hyposegmented Neuts Not Reportable Hypogranular Neuts Not Reportable Smudge Cells Not Reportable Toxic Granulation Not Reportable Toxic Vacuolation Not Reportable Dohle Bodies Not Reportable Pelger-Huet Anomaly Not Reportable Wallace Rods Not Reportable Platelet Estimate Consistent w auto Clumped Platelets Not Reportable Plt Clumps, EDTA Not Reportable Large Platelets Not Reportable Giant Platelets Not Reportable Platelet Satelliting Not Reportable Plt Morphology Comment Not Reportable RBC Morphology Normal Dimorphic RBCs Not Reportable Polychromasia Not Reportable Hypochromasia Not Reportable Poikilocytosis Not Reportable Anisocytosis Not Reportable Microcytosis Not Reportable Macrocytosis Not Reportable Spherocytes Not Reportable Pappenheimer Bodies Not Reportable Sickle Cells Not Reportable Target Cells Not Reportable Tear Drop Cells Not Reportable Ovalocytes Not Reportable Helmet Cells Not Reportable Roman-Nathrop Bodies Not Reportable Herrin Rings Not Reportable [place] Cells Not Reportable Bite Cells Not Reportable Crenated Cell Not Reportable Elliptocytes Not Reportable Acanthocytes (Spur) Not Reportable Rouleaux Not Reportable Hemoglobin C Crystals Not Reportable Schistocytes Not Reportable Malaria parasites Not Reportable Dandre Bodies Not Reportable Hem Pathologist Commnt No PT 13.7 INR 1.07 Sodium 142 Potassium 4.1 Chloride 110.1 H Carbon Dioxide 25 Anion Gap 11 BUN 17 Creatinine 0.7 L Estimated GFR > 60 BUN/Creatinine Ratio 24 Glucose 110 H POC Glucose Calcium 7.8 L Total Bilirubin AST ALT Alkaline Phosphatase Total Protein Albumin Albumin/Globulin Ratio Procalcitonin Coronavirus (PCR) 02/20/20 02/20/20 07:44 07:48 WBC RBC Hgb Hct MCV MCH MCHC RDW Plt Count Add Manual Diff Total Counted Seg Neuts % (Manual) Band Neutrophils % Lymphocytes % (Manual) Reactive Lymphs % (Man) Monocytes % (Manual) Eosinophils % (Manual) Basophils % (Manual) Metamyelocytes % Myelocytes % Promyelocytes % Blast Cells % Nucleated RBC % Seg Neutrophils # Man Band Neutrophils # Lymphocytes # (Manual) Abs React Lymphs (Man) Monocytes # (Manual) Eosinophils # (Manual) Basophils # (Manual) Metamyelocytes # Myelocytes # Promyelocytes # Blast Cells # WBC Morphology Hypersegmented Neuts Hyposegmented Neuts Hypogranular Neuts Smudge Cells Toxic Granulation Toxic Vacuolation Dohle Bodies Pelger-Huet Anomaly Wallace Rods Platelet Estimate Clumped Platelets Plt Clumps, EDTA Large Platelets Giant Platelets Platelet Satelliting Plt Morphology Comment RBC Morphology Dimorphic RBCs Polychromasia Hypochromasia Poikilocytosis Anisocytosis Microcytosis Macrocytosis Spherocytes Pappenheimer Bodies Sickle Cells Target Cells Tear Drop Cells Ovalocytes Helmet Cells Roman-Nathrop Bodies Herr[place] Rings [place] Cells Bite Cells Crenated Cell Elliptocytes Acanthocytes (Spur) Rouleaux Hemoglobin C Crystals Schistocytes Malaria parasites Dandre Bodies Hem Pathologist Commnt PT INR Sodium 140 Potassium 4.1 Chloride 109.8 H Carbon Dioxide 25 Anion Gap 9 BUN 16 Creatinine 0.7 L Estimated GFR > 60 BUN/Creatinine Ratio 23 Glucose 109 H POC Glucose 113 H Calcium 7.9 L Total Bilirubin < 0.20 AST 9 ALT 8 Alkaline Phosphatase 36 Total Protein 4.8 L Albumin 3.0 L Albumin/Globulin Ratio 1.7 Procalcitonin Coronavirus (PCR)
[2020-02-20 11:36] LABS: C-Reactive Protein 0.1 mg/dL (0.00-1.30)
[2020-02-20] MEDS: PANTOPRAZOLE 40 MG INJ IV SCH ×2 (13:15→22:00)
[2020-02-20 14:33] LABS: Hematocrit 20.9 % (35.5-45.6); Hemoglobin 7.5 gm/dl (11.8-15.2)
--- NOTE | 2020-02-20 15:24 | Progress Note ---
Assessment and Plan Cultures: None A/P: 34-year-old man past medical history obesity presented with an upper GI bleed #Covid-19: Not hypoxic, patient is not a candidate for remdesivir at the present time. #Upper GI bleed: Management per GI, possible EGD pending Covid test results #Obesity: BMI 34 Recs: -Patient is not a remdesivir candidate -Would also hold off on steroids -Monitor hypoxia, would start both of the above if she requires supplemental o xygen. Thank you for the consult, we will continue to follow. Unique Vaughn MD [facility] ([facility]) O: [phone] F: [phone] Subjective Date of service: 02/20/20 Principal diagnosis: GI bleed Interval history: Afebrile, leukopenia. Covid testing positive. Objective - Exam Narrative Exam: Physical exam deferred due to PPE conservation strategy. Please refer to primary team's note. - Constitutional Vitals: Vital Signs Temp Pulse Resp BP Pulse Ox 98.3 F 84 18 112/72 100 02/20/20 12:00 02/20/20 12:00 02/20/20 12:00 02/20/20 12:00 02/20/20 12:00 Temperature -Last 24 Hours Temperature 98.3 F Temperature 98.0 F Temperature 98.1 F Temperature 98.2 F - Labs CBC & Chem 7: 02/20/20 14:13 02/20/20 07:44 Labs: Abnormal lab results 02/19/20 02/19/20 02/19/20 Range/Units 08:25 22:39 22:51 WBC (4.5-11.0) K/mm3 RBC (3.65-5.03) M/mm3 Hgb 7.9 L (11.8-15.2) gm/dl Hct 21.8 L (35.5-45.6) % MCH (28-32) pg MCHC (32-34) % RDW (13.2-15.2) % Lymphocytes # (Manual) (1.2-5.4) K/mm3 Chloride (98-107) mmol/L Creatinine (0.8-1.3) mg/dL Glucose (75-100) mg/dL POC Glucose 118 H (70-105) mg/dL Calcium (8.4-10.2) mg/dL Total Protein (6.3-8.2) g/dL Albumin (3.9-5) g/dL Coronavirus (PCR) Positive A (Negative) 02/20/20 02/20/20 02/20/20 Range/Units 05:53 05:53 07:44 WBC 3.7 L (4.5-11.0) K/mm3 RBC 2.38 L (3.65-5.03) M/mm3 Hgb 8.0 L (11.8-15.2) gm/dl Hct 20.7 L (35.5-45.6) % MCH 34 H (28-32) pg MCHC 39 H* (32-34) % RDW 12.8 L (13.2-15.2) % Lymphocytes # (Manual) 0.9 L (1.2-5.4) K/mm3 Chloride 110.1 H 109.8 H (98-107) mmol/L Creatinine 0.7 L 0.7 L (0.8-1.3) mg/dL Glucose 110 H 109 H (75-100) mg/dL POC Glucose (70-105) mg/dL Calcium 7.8 L 7.9 L (8.4-10.2) mg/dL Total Protein 4.8 L (6.3-8.2) g/dL Albumin 3.0 L (3.9-5) g/dL Coronavirus (PCR) (Negative) 02/20/20 02/20/20 Range/Units 07:48 14:13 WBC (4.5-11.0) K/mm3 RBC (3.65-5.03) M/mm3 Hgb 7.5 L (11.8-15.2) gm/dl Hct 20.9 L (35.5-45.6) % MCH (28-32) pg MCHC (32-34) % RDW (13.2-15.2) % Lymphocytes # (Manual) (1.2-5.4) K/mm3 Chloride (98-107) mmol/L Creatinine (0.8-1.3) mg/dL Glucose (75-100) mg/dL POC Glucose 113 H (70-105) mg/dL Calcium (8.4-10.2) mg/dL Total Protein (6.3-8.2) g/dL Albumin (3.9-5) g/dL Coronavirus (PCR) (Negative)
--- NOTE | 2020-02-20 17:28 | Progress Note ---
Assessment and Plan Positive COVID 19 Acute GI bleed Obesity Dvt Px -- not a candidate for COVID rx - follow h/h, GI following - cont iv fluid Subjective Date of service: 02/20/20 Principal diagnosis: GI bleed Objective - Constitutional Vitals: Vital Signs - 12hr 02/20/20 02/20/20 08:00 12:00 Temperature 98.3 F Pulse Rate 84 Respiratory 20 18 Rate Blood Pressure 112/72 O2 Sat by Pulse 99 100 Oximetry - Labs CBC & Chem 7: 02/21/20 13:45 02/20/20 07:44 Labs: Abnormal lab results 02/19/20 02/19/20 02/20/20 Range/Units 22:39 22:51 05:53 WBC 3.7 L (4.5-11.0) K/mm3 RBC 2.38 L (3.65-5.03) M/mm3 Hgb 7.9 L 8.0 L (11.8-15.2) gm/dl Hct 21.8 L 20.7 L (35.5-45.6) % MCH 34 H (28-32) pg MCHC 39 H* (32-34) % RDW 12.8 L (13.2-15.2) % Lymphocytes # (Manual) 0.9 L (1.2-5.4) K/mm3 Chloride (98-107) mmol/L Creatinine (0.8-1.3) mg/dL Glucose (75-100) mg/dL POC Glucose 118 H (70-105) mg/dL Calcium (8.4-10.2) mg/dL Total Protein (6.3-8.2) g/dL Albumin (3.9-5) g/dL 02/20/20 02/20/20 02/20/20 Range/Units 05:53 07:44 07:48 WBC (4.5-11.0) K/mm3 RBC (3.65-5.03) M/mm3 Hgb (11.8-15.2) gm/dl Hct (35.5-45.6) % MCH (28-32) pg MCHC (32-34) % RDW (13.2-15.2) % Lymphocytes # (Manual) (1.2-5.4) K/mm3 Chloride 110.1 H 109.8 H (98-107) mmol/L Creatinine 0.7 L 0.7 L (0.8-1.3) mg/dL Glucose 110 H 109 H (75-100) mg/dL POC Glucose 113 H (70-105) mg/dL Calcium 7.8 L 7.9 L (8.4-10.2) mg/dL Total Protein 4.8 L (6.3-8.2) g/dL Albumin 3.0 L (3.9-5) g/dL 02/20/20 Range/Units 14:13 WBC (4.5-11.0) K/mm3 RBC (3.65-5.03) M/mm3 Hgb 7.5 L (11.8-15.2) gm/dl Hct 20.9 L (35.5-45.6) % MCH (28-32) pg MCHC (32-34) % RDW (13.2-15.2) % Lymphocytes # (Manual) (1.2-5.4) K/mm3 Chloride (98-107) mmol/L Creatinine (0.8-1.3) mg/dL Glucose (75-100) mg/dL POC Glucose (70-105) mg/dL Calcium (8.4-10.2) mg/dL Total Protein (6.3-8.2) g/dL Albumin (3.9-5) g/dL
[2020-02-21 00:21] LABS: Hematocrit 20.3 % (35.5-45.6); Hemoglobin 7.3 gm/dl (11.8-15.2)
[2020-02-21] MEDS: SODIUM CHLORIDE 0.9% 1000 ML 1,000 ML IV SCH (05:16)
[2020-02-21] MEDS: PANTOPRAZOLE 40 MG INJ IV SCH (09:41)
--- NOTE | 2020-02-21 10:17 | Gastroenterology Progress Note ---
Assessment and Plan 1. UGI bleed - pt with dark brown appearing stool on rectal exam. no obvious blood/overt bleeding. remains anemic, stable, ate breakfast this morning so unable to do egd and since COVID positive, will reserve endoscopy for signs of overt bleeding. monitor H/h, okay to cont clears today, transfuse to keep hgb > 7. Subjective Date of service: 02/21/20 Principal diagnosis: GI bleed Interval history: Patient reports dark stool yesterday. abd pain resolved. ate breakfast this morning Objective - Constitutional Vitals: Temp Pulse Resp BP Pulse Ox 98.1 F 74 18 108/68 99 02/20/20 22:48 02/20/20 22:48 02/20/20 22:48 02/20/20 22:48 02/20/20 22:48 General appearance: no acute distress - Respiratory Respiratory effort: normal Respiratory: bilateral: CTA - Cardiovascular Rhythm: regular Heart Sounds: Present: S1 & S2 - Gastrointestinal General gastrointestinal: Present: soft, non-tender, non-distended Rectal Exam: other (dark stool, non-bloody or tarry appearing) - Labs CBC & Chem 7: 02/20/20 22:43 02/20/20 07:44 Labs: Laboratory Results - last 24 hr 02/20/20 02/20/20 02/20/20 09:36 09:36 09:36 Hgb Hct D-Dimer 151.63 Ferritin 90.8 Lactate Dehydrogenase 119 C-Reactive Protein 0.10 02/20/20 02/20/20 14:13 22:43 Hgb 7.5 L 7.3 L Hct 20.9 L 20.3 L D-Dimer Ferritin Lactate Dehydrogenase C-Reactive Protein
--- NOTE | 2020-02-21 11:25 | Progress Note ---
Assessment and Plan Cultures: None A/P: 34-year-old man past medical history obesity presented with an upper GI bleed #Covid-19: Not hypoxic, patient is not a candidate for remdesivir at the present time. #Upper GI bleed: Management per GI, possible EGD pending Covid test results #Obesity: BMI 34 Recs: -Patient is not a remdesivir candidate -Would also hold off on steroids -Monitor hypoxia, would start both of the above if he requires supplemental ox ygen. Okay for discharge from infectious perspective this patient as he is stable. Thank you for the consult, we will sign off. Please call if oxygen status worsens Unique Vaughn MD [facility] O: [phone] F: [phone] Subjective Date of service: 02/21/20 Principal diagnosis: GI bleed Interval history: Afebrile, mild leukopenia. Remains on room air. Objective - Exam Narrative Exam: Physical exam deferred due to PPE conservation strategy. Please refer to primary team's note. - Constitutional Vitals: Vital Signs Temp Pulse Resp BP Pulse Ox 98.1 F 74 18 108/68 99 02/20/20 22:48 02/20/20 22:48 02/20/20 22:48 02/20/20 22:48 02/20/20 22:48 Temperature -Last 24 Hours Temperature 98.1 F Temperature 98.2 F Temperature 98.3 F - Labs CBC & Chem 7: 02/20/20 22:43 02/20/20 07:44 Labs: Abnormal lab results 02/20/20 02/20/20 Range/Units 14:13 22:43 Hgb 7.5 L 7.3 L (11.8-15.2) gm/dl Hct 20.9 L 20.3 L (35.5-45.6) %
[2020-02-21 15:09] LABS: Hematocrit 24.5 % (35.5-45.6); Hemoglobin 8.6 gm/dl (11.8-15.2); Mean Corpuscular HGB Conc 35 % (32-34); Mean Corpuscular Volume 89 fl (84-94); Platelet Count 220 K/mm3 (140-440); Red Blood Count 2.76 M/mm3 (3.65-5.03)
--- NOTE | 2020-02-21 15:29 | Discharge Summary ---
Providers - Providers Date of Admission: 02/20/20 11:28 Date of discharge: 02/21/20 Attending physician: SHIRAZ CONTRERAS 02/18/20 22:18 Consult to Physician [CONS] Stat Comment: Dr. Haley spoke with Dr. Wagoner @ [phone] Consulting Provider: HEATHER PEDRO Physician Instructions: Reason For Exam: gi bleed 02/19/20 06:03 Consult to Physician [CONS] Routine Comment: Consulting Provider: BETI MENA Physician Instructions: Reason For Exam: Fever,Chills. R/O Covid [facility] Condition: Serious Disposition: DC-01 TO HOME OR SELFCARE Time spent for discharge: 34 minutes Core Measure Documentation - Palliative Care Palliative Care/ Comfort Measures: Not Applicable - Core Measures Any of the following diagnoses?: none Exam - Constitutional Vitals: Temp Pulse Resp BP Pulse Ox 98.4 F 90 22 126/84 99 02/21/20 11:13 02/21/20 11:13 02/21/20 11:13 02/21/20 11:13 02/21/20 11:13 Plan Activity: advance as tolerated Weight Bearing Status: Weight Bear as Tolerated Diet: advance as tolerated Follow up with: FARRUKH WOODARDSAN ANTONIO MD MARIVEL [Primary Care Provider] - 3-5 Days TOMASZ CHAVIRA MD [Staff Physician] - 7 Days Prescriptions: Pantoprazole [Protonix TAB] 40 mg PO BIDAC #60 tablet
[2020-02-21 15:30] LABS: Blood Urea Nitrogen 8 mg/dL (9-20); Calcium 8.6 mg/dL (8.4-10.2); Hemolysis Index 11
[2020-02-21 15:32] LABS: BUN/Creatinine Ratio 11
[2020-02-21 16:04] LABS: Hematocrit 23.2 % (35.5-45.6); Hemoglobin 8.4 gm/dl (11.8-15.2)
[2020-02-21 17:40] VITALS: BP 120/81
[2020-02-22] MEDS ORDERED: PANTOPRAZOLE 40 MG TAB PO SCH (07:30)
== END 2020-02-21 18:50 | disposition home or self-care (01) | DRG 178 ==
LOC: ED 21:51 → 3A 02-19 00:51 → OBSVTOIN 02-20 11:28
PROVIDERS: ADMIT Internal Medicine Geriatric Medicine; ATTEND Internal Medicine
DX: U07.1 COVID-19 (principal); K92.2 Gastrointestinal hemorrhage, unspecified; D64.9 Anemia, unspecified; E66.9 Obesity, unspecified; Z68.34 Body mass index [BMI] 34.0-34.9, adult; Z71.3 Dietary counseling and surveillance
CPT/HCPCS: 36415; 71045; 74177; 80048; 80053; 80076; 81001; 82140; 82550; 82728; 82962; 83615; 83690; 83735; 84145; 85007; 85014; 85018; 85025; 85027; 85379; 85610; 86140; 86850; 86900; 86901; 87040; 87086; 93005; 96365; 96375; G0378; C9113; J2270; J2405; J7030; J7050; J7120; Q9967; U0003